=== PATIENT | female | born 1955 | race Caucasian/White ===

== ENCOUNTER 2020-02-24 09:03 | Observation (INO) | payer OTHER ==
[~2020-02-24] VITALS: Ht 167.6 cm; Wt 108.6 kg
[2020-02-24] VITALS (10 sets, daily range): BP systolic 133–155; BP diastolic 66–93; PULSE 58–97; TEMP 97.7–98.7
[2020-02-24 09:44] LABS: COLLECTION METHOD CLEAN CATCH
[2020-02-24 09:56] LABS: MUCOUS Present /lpf; PH 6 (5-8); URINE APPEARANCE Cloudy; URINE BACTERIA Rare /hpf; URINE BILIRUBIN Negative (NEGATIVE); URINE BLOOD Negative (NEGATIVE); URINE COLOR Amber; URINE GLUCOSE Negative (NEGATIVE); URINE KETONE Trace (NEGATIVE); URINE LEUKOCYTE ESTERASE 1+ (NEGATIVE); URINE NITRATE Negative (NEGATIVE); URINE PROTEIN(semi-quant) 1+ (NEGATIVE)
[2020-02-24 10:22] LABS: BASO # 0.1 (0.0-0.2); BASO % 0.8 % (0.0-2.0); EOS # 0.1 (0.0-0.7); EOS % 1.9 % (0-4.0); GRAN # 4.4 (1.4-6.5); GRAN % 75.2 % (42.2-75.2); HEMATOCRIT 39.9 % (37.0-47.0); HEMOGLOBIN 13.1 g/dl (12.5-16.0); LYMPH % 17.3 % (20.0-51.0); MEAN CELL VOLUME 90 fl (80.0-100.0); MEAN CORPUSCULAR HEMOGLOBIN 29 pg (27.0-31.0); MEAN CORPUSCULAR HGB CONC 33 g/dl (33.0-37.0); MEAN PLATELET VOLUME 11.2 fl (7.4-10.4); MONO # 0.3 (0.1-0.6); MONO % 4.6 % (1.7-9.3); PLATELET COUNT 153 K/mm3 (130-400); RED BLOOD COUNT 4.45 M/mm3 (4.10-5.30); REDCELL DISTRIBUTION WIDTH-CV 12.4 % (11.5-14.5)
[2020-02-24 10:32] LABS: ALBUMIN 4.2 gm/dL (3.5-5.0); BILIRUBIN,TOTAL 0.6 mg/dL (0.0-1.0); CREATININE, serum 0.69 (0.52-1.25); POTASSIUM 3.5 mmol/L (3.4-5.0)
[2020-02-24] MEDS ORDERED: TOPROL XL 50MG50 MG PO (12:47)
[2020-02-24] MEDS ORDERED: CLARITIN 1010 MG/TAB PO (12:47)
[2020-02-24] MEDS ORDERED: HCTZ 25MG TAB25 MG PO (12:48)
[2020-02-24] MEDS ORDERED: LIPITOR20 MG PO (12:48)
[2020-02-24] MEDS ORDERED: NORCO 325 MG-51 TAB PO (15:07)
[2020-02-24] MEDS ORDERED: MOTRIN 600600 MG/TAB PO (15:07)
--- NOTE | 2020-02-24 19:07 | NUR ---
Patient arrived to floor from PACU via bed. Patient was alert, oriented, and appropriate upon arrival. Patient up to bathroom with x1 assist, was continent of urine. Administered PRN pain medication once per patient request, patient tolerated PO medication and oral intake well, denies nausea. Patient denies further needs, call light within reach.
--- NOTE | 2020-02-24 20:37 | NUR ---
AFTER WALKING IN HALLWAY, PT TAKES NORCO FOR RLQ PAIN. INCISION IS GLUED AND DRY. IVF TO LEFT AC WITHOUT REDNESS OR SWELLING. PT IS ALERT AND ORIENTED X4.
--- NOTE | 2020-02-24 20:37 | NUR ---
AMBULATES IN HALLWAY,GAIT STEADY.
[2020-02-25 04:00] VITALS: BP 119/52; PULSE 53; TEMP 97.4
--- NOTE | 2020-02-25 06:00 | NUR ---
PT UP TO BATHROOM WITH STANDBY. DENIES NEED FOR MED STRONGER THAN MOTRIN FOR ABD PAIN.
[2020-02-25 08:00] VITALS: BP 134/70; PULSE 56; TEMP 98.1
--- NOTE | 2020-02-25 10:25 | NUR ---
RYAN met with the patient and her daughter, Shamika (ph#[phone]), to discuss discharge plan. The patient lives in [place] with Shamika, her son-in-law, and granddaughter. She reports independence with ADLs and does not have any DME. The patient's primary care provider is NALINI Batista and she receives her medications at the [facility] in [place]. She reports occasional difficulties affording her meds. RYAN discussed [facility] and [facility]. Shamika reports that she can help the patient, if she does ever have any difficulties paying for them. The patient does not have a DPOA-HC completed, but she was interested in obtaining a form. RYAN provided. The patient plans to return home with her daughter upon discharge. No additional needs at this time.
--- NOTE | 2020-02-25 10:42 | NUR ---
Initial visit; Patient and her daughter thanked [employer] for looking in on her and offering God's blessings and to keep her in [employer]'s prayers.
--- NOTE | 2020-02-25 11:12 | NUR ---
Patient alert and oriented, answers questions appropriately. See assessment. Abdomen soft, non tender, non distended. Bowel sounds active x4 quads. No flatus. No bowel movement. RLQ incision with edges well approximated, no redness or drainage noted. Post op exercises reviewed with patient. No c/o at this time.
[2020-02-25 11:42] VITALS: BP 151/71; PULSE 57; TEMP 98.8
--- NOTE | 2020-02-25 14:19 | NUR ---
Discharge instructions reviewed with patient and daughter, verbalized understanding. Discharged via wheelchair to auto/home with family at 1345.
== END 2020-02-25 13:45 | disposition home or self-care (01) ==
LOC: COL.ER 09:03 → SURG 13:26
PROVIDERS: Family Medicine; ADMIT Surgery
DX: K40.30 Unilateral inguinal hernia, with obstruction, without gangrene, not specified as recurrent (principal); I10 Essential (primary) hypertension; E78.5 Hyperlipidemia, unspecified; Z88.1 Allergy status to other antibiotic agents; Z88.2 Allergy status to sulfonamides; E11.9 Type 2 diabetes mellitus without complications
CPT/HCPCS: A9284; C1781; G0378; J0360; J1100; J2270; J2405; J2704; J3010; J7120; Q9967